=== PATIENT | female | born 1980 | race Caucasian/White ===

== ENCOUNTER 2021-12-21 06:58 | Emergency (ER) | payer OTHER ==
[~2021-12-21] VITALS: Ht 165.1 cm; Wt 115.0 kg
[2021-12-21] MEDS ORDERED: OXYCODONE HCL/ACETAMINOPHEN 5/325MG TABLET PO SCH (08:30)
[2021-12-21] MEDS ORDERED: DEXAMETHASONE 4MG/ML 1ML VIAL IM SCH (08:30)
[2021-12-21] MEDS ORDERED: MED4 MT (10:27)
[2021-12-21] MEDS ORDERED: OXYC-105 MT (11:21)
[2021-12-21 11:52] VITALS: BP 134/84
== END 2021-12-21 11:57 | disposition home or self-care (01) ==
LOC: ER 06:58
DX: M51.26 Other intervertebral disc displacement, lumbar region (principal); R51.9 Headache, unspecified
CPT/HCPCS: 72125; 72128; 72131; 99284; J1100